=== PATIENT | female | born 1990 | race Caucasian/White ===

== ENCOUNTER 2018-09-16 20:52 | Emergency (ER) | payer BC ==
[2018-09-16 22:31] LABS: URINE BLOOD (Dip) POC Negative (NEGATIVE); URINE GLUCOSE (Dip) POC Negative (NEGATIVE); URINE KETONES (Dip) POC Negative (NEGATIVE); URINE LEUKOCYTE EST (Dip) POC Negative (NEGATIVE); URINE NITRITE (Dip) POC Negative (NEGATIVE); URINE TOTAL PROTEIN POC Negative (NEGATIVE)
== END 2018-09-16 23:10 | disposition home or self-care (01) ==
LOC: FTE 20:52
DX: R19.7 Diarrhea, unspecified (principal)
CPT/HCPCS: 81003; 81025; 99282

== ENCOUNTER 2018-10-01 14:31 | Emergency (ER) | payer BC | END 2018-10-01 15:21 | disposition home or self-care (01) | LOC: FTE 14:31 | DX: N61.0 Mastitis without abscess (principal) | CPT/HCPCS: 99283 ==